=== PATIENT | female | born 1960 | race Caucasian/White ===

== ENCOUNTER 2022-11-27 09:25 | Outpatient (RCR) | payer OTHER, SELFPAY | END 2023-03-27 23:59 | disposition home or self-care (01) | PROVIDERS: PCP Family Medicine; Visit Provider Family Medicine | DX: M79.671 Pain in right foot (principal); M79.672 Pain in left foot; M21.42 Flat foot [pes planus] (acquired), left foot; M21.41 Flat foot [pes planus] (acquired), right foot; Z51.89 Encounter for other specified aftercare | CPT/HCPCS: 97161; 97760 ==

== ENCOUNTER 2025-01-15 13:15 | Outpatient (RCR) | payer BC, SELFPAY | END 2025-01-15 14:40 | disposition home or self-care (01) | PROVIDERS: PCP Family Medicine; Visit Provider Family Medicine | DX: M25.552 Pain in left hip (principal); M41.35 Thoracogenic scoliosis, thoracolumbar region; M54.2 Cervicalgia; R20.0 Anesthesia of skin; R20.2 Paresthesia of skin; Z51.89 Encounter for other specified aftercare | CPT/HCPCS: 97110; 97140; 97163; 97530 ==